=== PATIENT | male | born 1990 | race Caucasian/White ===

== ENCOUNTER 2018-11-22 13:51 | Emergency (ER) | payer OTHER ==
[2018-11-22] MEDS ORDERED: KETOROLAC 30 MG/ML 1 ML VIAL IM STA (14:26)
[2018-11-22] MEDS ORDERED: ACET/COD 300 MG/30 MG STARTER PACK 6 TAB BTL PO STA (14:27)
--- NOTE | 2018-11-22 14:40 | ED ---
Upper Extremity HPI - General Chief Complaint: Extremity Injury, Upper Stated Complaint: shoulder injury Time Seen by Provider: 11/22/18 14:01 Source: patient, RN notes reviewed, old records reviewed Mode of arrival: ambulatory Limitations: no limitations - History of Present Illness Initial Comments: Patient is a 28-year-old male presenting to emergency department today for a violation for right shoulder pain. He reports pain with any range of motion specifically about the head. Patient denies any falls or trauma. 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 Patient states that he occasionally has some numbness and tingling down his right hand does been chronic for months. Patient states that he has had no previous right shoulder injuries. He is right-handed. - Related Data Home Medications Medication Instructions Recorded Confirmed Cyclobenzaprine [Flexeril] 10 mg PO DAILY 11/22/18 11/22/18 traMADol HCL/ACETAMINOPHEN 1 tab PO Q6H 11/22/18 11/22/18 [Ultracet 37.5-325] Previous Rx's Medication Instructions Recorded Acetaminophen with Codeine 1 tab PO Q6H PRN 3 Days #12 tab 11/22/18 [Tylenol w/codeine #3] Allergies Allergy/AdvReac Type Severity Reaction Status Date / Time No Known Allergies Allergy Verified 11/22/18 14:36 Review of Systems ROS Statement: Those systems with pertinent positive or pertinent negative responses have been documented in the HPI. ROS Other: All systems not noted in ROS Statement are negative. Past Medical History Past Medical History: No Reported History History of Any Multi-Drug Resistant Organisms: None Reported Past Surgical History: Appendectomy Past Psychological History: No Psychological Hx Reported Smoking Status: Never smoker Past Alcohol Use History: None Reported Past Drug Use History: None Reported General Exam - General Exam Comments Initial Comments: Alert and oriented 28-year-old male. No significant distress. Limitations: no limitations General appearance: alert, in no apparent distress Eye exam: Present: normal appearance, PERRL, EOMI. Absent: scleral icterus, conjunctival injection, periorbital swelling ENT exam: Present: normal exam, mucous membranes moist Neck exam: Present: normal inspection Respiratory exam: Present: normal lung sounds bilaterally, respiratory distress Cardiovascular Exam: Present: regular rate, normal rhythm, normal heart sounds. Absent: systolic murmur, diastolic murmur, rubs, gallop, clicks GI/Abdominal exam: Present: soft Extremities exam: Present: normal inspection, full ROM, normal capillary refill, other (Patient in homemade sling of right arm. ). Absent: tenderness, pedal edema, joint swelling, calf tenderness Right Shoulder Exam: Present: normal inspection, tenderness (over supraspinatus. ). Absent: full ROM, swelling, abrasion Elbow exam: Present: normal inspection, full ROM Forearm Wrist exam: Present: normal inspection, full ROM Hand Wrist exam: Present: normal inspection, full ROM Neuro motor exam: Present: wrist extension intact, thumb opposition intact, thumb IP flexion intact, thumb adduction intact, fingers 2-5 abduction intact Vascular: Present: normal capillary refill Back exam: Present: normal inspection Neurological exam: Present: alert, oriented X3, CN II-XII intact Psychiatric exam: Present: normal affect, normal mood Course Vital Signs 11/22/18 11/22/18 13:54 14:50 Temperature 98.5 F 98 F Pulse Rate 74 78 Respiratory 18 20 Rate Blood Pressure 133/88 150/90 O2 Sat by Pulse 100 98 Oximetry Medical Decision Making - Medical Decision Making Patient is a 28 year old male with R shoulder pain after getting out of the shower and over head lifting is. Patient does do chronic repeatitive movment of right shoulder, history of service. Patient cannot move shoulder above head, disucssed likely rotator cuff injury. He is tender over supraspinatus. He is here visiting family from [place], discussed placing patient in sling and follow up with ortho. DC with Rx for pain medication until patient can go to ortho in [place]. All questions answered. - Radiology Data Radiology results: report reviewed Normal R shoulder xray. Disposition Clinical Impression: Disorder of right rotator cuff Disposition: HOME SELF-CARE Condition: Good Instructions (If sedation given, give patient instructions): Rotator Cuff Injury (ED) Additional Instructions: Follow-up with primary care doctor. and ortho. Take motrin and tylenol. Wear sling. Return to the emergency department if any alarming signs or symptoms occur. Prescriptions: Acetaminophen with Codeine [Tylenol w/codeine #3] 1 tab PO Q6H PRN 3 Days #12 tab PRN Reason: Pain Is patient prescribed a controlled substance at d/c from ED?: No Referrals: None,Stated [Primary Care Provider] - 1-2 days Niki Bonilla MD [STAFF PHYSICIAN] - 1-2 days Time of Disposition: 15:29
--- NOTE | 2018-11-22 14:45 | XR ---
Right shoulder HISTORY: Right shoulder pain 3 views of the right shoulder Bone mineralization, joint spaces, alignment are maintained. Right lung apex as visualized is normal. No significant arthropathy. IMPRESSION: No fracture or dislocation.
[2018-11-22 14:51] VITALS: BP 150/90; PULSE 78; RESP 20; TEMP 98
== END 2018-11-22 15:53 | disposition home or self-care (01) ==
LOC: EC 13:51
DX: M67.911 Unspecified disorder of synovium and tendon, right shoulder (principal)
CPT/HCPCS: 73030; 99284; 96372; J1885